=== PATIENT | female | born 1945 | race Two or more races ===

== ENCOUNTER → 2017-11-06 | Emergency (ER) | payer OTHER ==
[~2017-11-06] VITALS: Ht 149.9 cm; Wt 53.1 kg
[~2017-11-06] MED LIST: ADALAT CC30 MG; AMOX1TAB12 PO; ATENOLOL100 MG PO; BUTALB-ACETAMI1 EACH PO; BUTALBITAL-APAP1 TA1 PO; CATAPRES0.1 MG; DOLOGESIC 500-1 EACH PO; INTESTINEX680 MG PO; KETO10TA2 PO; PRAVACHOL10 MG; PROTONIX20 MG; PROTONIX40 MG PO; Procardia Xl 30MG TAB PO; SPIRONOLACT/HCT1 TAB; Synthroid PO; TUSSIONEX PENN115 ML PO; ZETIA10 MG
== END | disposition home or self-care (01) ==
LOC: ER 06:29
DX: R50.9 Fever, unspecified (principal)

== ENCOUNTER 2017-11-14 19:33 | Inpatient (IN) | payer OTHER ==
[~2017-11-14] VITALS: Ht 149.9 cm; Wt 53.1 kg
[2017-11-17] MEDS ORDERED: ZYRTEC10 M3 PO (12:18)
[2017-11-17] MEDS ORDERED: TUSICOF LIQUID120 ML PO (12:18)
[2017-11-17] MEDS ORDERED: AMOX1TAB12 PO (12:18)
== END 2017-11-17 12:33 | disposition home or self-care (01) | DRG 842 ==
LOC: ER 19:33 → MEDI 11-15 08:55
PROC: 30233N1 Transfusion of Nonautologous Red Blood Cells into Peripheral Vein, Percutaneous Approach (ICD-10-PCS; principal; 2017-11-15)
PROC: B54CZZZ Ultrasonography of Left Lower Extremity Veins (ICD-10-PCS; 2017-11-15)
DX: C90.00 Multiple myeloma not having achieved remission (principal); J11.1 Influenza due to unidentified influenza virus with other respiratory manifestations; D63.0 Anemia in neoplastic disease; I27.29 Other secondary pulmonary hypertension; I12.9 Hypertensive chronic kidney disease with stage 1 through stage 4 chronic kidney disease, or unspecified chronic kidney disease; E11.22 Type 2 diabetes mellitus with diabetic chronic kidney disease; N18.1 Chronic kidney disease, stage 1; K52.89 Other specified noninfective gastroenteritis and colitis; D69.59 Other secondary thrombocytopenia; E86.0 Dehydration; E87.6 Hypokalemia; E03.8 Other specified hypothyroidism

== ENCOUNTER 2018-07-24 02:41 | Inpatient (IN) | payer OTHER ==
[~2018-07-24] VITALS: Ht 149.9 cm; Wt 63.5 kg
[~2018-07-24 02:41] MED LIST changes: +TUSICOF LIQUID120 ML PO; +ZYRTEC10 M3 PO
[2018-07-29] MEDS ORDERED: RANITIDINE HCL150 M1 PO (18:35)
[2018-07-29] MEDS ORDERED: HYOSCYAMINE0.125 M1 SL (18:35)
[2018-07-29] MEDS ORDERED: ZOFRAN4 MG PO (18:35)
[2018-07-29] MEDS ORDERED: Intestinex CAP PO (18:35)
== END 2018-07-30 12:58 | disposition home or self-care (01) | DRG 394 ==
LOC: ER 02:41 → SURH 07-25 15:26
PROC: BW25Y0Z Computerized Tomography (CT Scan) of Chest, Abdomen and Pelvis using Other Contrast, Unenhanced and Enhanced (ICD-10-PCS; principal; 2018-07-25)
PROC: 8E0ZXY6 Isolation (ICD-10-PCS; 2018-07-25)
PROC: BW40ZZZ Ultrasonography of Abdomen (ICD-10-PCS; 2018-07-26)
DX: K62.89 Other specified diseases of anus and rectum (principal); A09 Infectious gastroenteritis and colitis, unspecified; C90.00 Multiple myeloma not having achieved remission; E86.0 Dehydration; E11.22 Type 2 diabetes mellitus with diabetic chronic kidney disease; I12.9 Hypertensive chronic kidney disease with stage 1 through stage 4 chronic kidney disease, or unspecified chronic kidney disease; N18.1 Chronic kidney disease, stage 1; E03.8 Other specified hypothyroidism; I27.29 Other secondary pulmonary hypertension

== ENCOUNTER 2018-10-12 00:09 | Emergency (ER) | payer OTHER ==
[~2018-10-12] VITALS: Ht 149.9 cm; Wt 59.9 kg
[~2018-10-12 00:09] MED LIST changes: +HYOSCYAMINE0.125 M1 SL; +Intestinex CAP PO; +RANITIDINE HCL150 M1 PO; +ZOFRAN4 MG PO
[2018-10-12] MEDS ORDERED: NIFEDIPINE ER30 M1 PO (03:42)
[2018-10-12] MEDS ORDERED: ATENOLOL25 MG PO (15:40)
== END 2018-10-12 03:59 | disposition home or self-care (01) ==
LOC: ER 00:09
DX: I16.0 Hypertensive urgency (principal); I10 Essential (primary) hypertension

== ENCOUNTER 2018-10-14 17:58 | Emergency (ER) | payer OTHER ==
[~2018-10-14] VITALS: Ht 149.9 cm; Wt 59.0 kg
[~2018-10-14 17:58] MED LIST changes: +ATENOLOL25 MG PO; +NIFEDIPINE ER30 M1 PO
== END 2018-10-14 18:44 | disposition home or self-care (01) ==
LOC: ER 17:58
DX: I16.0 Hypertensive urgency (principal); I10 Essential (primary) hypertension; R51 Headache

== ENCOUNTER 2019-01-27 13:18 | Outpatient (CLI) | payer OTHER | END 2019-01-27 13:32 | disposition home or self-care (01) | LOC: RAD 501 13:18 | DX: M25.561 Pain in right knee (principal); M25.522 Pain in left elbow; M25.571 Pain in right ankle and joints of right foot ==

== ENCOUNTER 2019-03-03 13:40 | Outpatient (CLI) | payer OTHER | END 2019-03-03 13:49 | disposition home or self-care (01) | LOC: NUCLEAR 13:40 | DX: M81.0 Age-related osteoporosis without current pathological fracture (principal) ==

== ENCOUNTER 2019-04-28 11:23 | Outpatient (CLI) | payer OTHER | END 2019-04-28 11:34 | disposition home or self-care (01) | LOC: MRI 11:23 | DX: M25.561 Pain in right knee (principal) | CPT/HCPCS: 73721 ==

== ENCOUNTER 2021-02-28 14:14 | Outpatient (CLI) | payer OTHER | END 2021-02-28 14:24 | disposition home or self-care (01) | LOC: MAMO-SONO 14:14 | DX: Z12.31 Encounter for screening mammogram for malignant neoplasm of breast (principal); I10 Essential (primary) hypertension; R07.89 Other chest pain; N64.4 Mastodynia; N64.59 Other signs and symptoms in breast ==

== ENCOUNTER 2021-04-06 10:48 | Outpatient (CLI) | payer OTHER | END 2021-04-06 11:06 | disposition home or self-care (01) | LOC: SONOGRAMA 10:48 | PROVIDERS: ATTEND Surgery | DX: D24.2 Benign neoplasm of left breast (principal); N60.11 Diffuse cystic mastopathy of right breast; N60.12 Diffuse cystic mastopathy of left breast; R92.0 Mammographic microcalcification found on diagnostic imaging of breast ==

== ENCOUNTER 2021-06-14 11:03 | Outpatient (CLI) | payer OTHER | END 2021-06-14 11:14 | disposition home or self-care (01) | LOC: SONOGRAMA 11:03 | PROVIDERS: ATTEND Internal Medicine | DX: E04.2 Nontoxic multinodular goiter (principal) ==

== ENCOUNTER 2021-08-03 09:44 | Outpatient (CLI) | payer OTHER | END 2021-08-03 09:52 | disposition home or self-care (01) | LOC: MRI 09:44 | PROVIDERS: ATTEND Psychiatry & Neurology Clinical Neurophysiology | DX: G31.84 Mild cognitive impairment of uncertain or unknown etiology (principal); G30.1 Alzheimer's disease with late onset; G31.89 Other specified degenerative diseases of nervous system | CPT/HCPCS: 70551 ==

== ENCOUNTER 2021-09-12 17:19 | Emergency (ER) | payer OTHER ==
[~2021-09-12] VITALS: Ht 149.9 cm; Wt 63.5 kg
[2021-09-12] MEDS ORDERED: PROBIOTIC & AC1 EACH PO (22:13)
[2021-09-12] MEDS ORDERED: PEPCID AC20 MG PO (22:13)
== END 2021-09-12 22:20 | disposition home or self-care (01) ==
LOC: ER 17:19
DX: R19.7 Diarrhea, unspecified (principal); Z20.822 Contact with and (suspected) exposure to COVID-19

== ENCOUNTER 2022-06-20 07:40 | Outpatient (CLI) | payer OTHER ==
[~2022-06-20 07:40] MED LIST changes: +PEPCID AC20 MG PO; +PROBIOTIC & AC1 EACH PO
== END 2022-06-20 07:49 | disposition home or self-care (01) ==
LOC: SONOGRAMA 07:40
PROVIDERS: ATTEND Internal Medicine Nephrology
DX: E11.22 Type 2 diabetes mellitus with diabetic chronic kidney disease (principal); N18.30 Chronic kidney disease, stage 3 unspecified; N28.1 Cyst of kidney, acquired

== ENCOUNTER 2023-04-15 07:36 | Outpatient (CLI) | payer OTHER | END 2023-04-15 07:42 | disposition home or self-care (01) | LOC: NUCLEAR 07:36 | PROVIDERS: ATTEND Internal Medicine Cardiovascular Disease | DX: I25.10 Atherosclerotic heart disease of native coronary artery without angina pectoris (principal) | CPT/HCPCS: 78452; 93017; A9500; J0153 ==

== ENCOUNTER 2023-08-26 07:58 | Outpatient (CLI) | payer OTHER | END 2023-08-26 08:13 | disposition home or self-care (01) | LOC: RAD 07:58 | PROVIDERS: ATTEND Physical Medicine & Rehabilitation | DX: M54.50 Low back pain, unspecified (principal); M54.16 Radiculopathy, lumbar region; N18.30 Chronic kidney disease, stage 3 unspecified; M16.0 Bilateral primary osteoarthritis of hip | CPT/HCPCS: 72148 ==

== ENCOUNTER 2024-07-14 08:57 | Outpatient (CLI) | payer OTHER | END 2024-07-14 09:00 | disposition home or self-care (01) | LOC: NUCLEAR 08:57 | PROVIDERS: ATTEND Internal Medicine Cardiovascular Disease | DX: I87.2 Venous insufficiency (chronic) (peripheral) (principal) ==

== ENCOUNTER 2024-07-15 08:37 | Outpatient (CLI) | payer OTHER | END 2024-07-15 08:40 | disposition home or self-care (01) | LOC: NUCLEAR 08:37 | PROVIDERS: ATTEND Internal Medicine Cardiovascular Disease | DX: I73.9 Peripheral vascular disease, unspecified (principal); E11.9 Type 2 diabetes mellitus without complications ==

== ENCOUNTER → 2024-12-22 07:12 | Outpatient (CLI) | payer OTHER | END | disposition home or self-care (01) | LOC: NUCLEAR 06:30 | PROVIDERS: ATTEND Internal Medicine | DX: M94.9 Disorder of cartilage, unspecified (principal); M19.90 Unspecified osteoarthritis, unspecified site | CPT/HCPCS: 78306; A9503 ==

== ENCOUNTER 2025-07-20 14:18 | Inpatient (IN) | payer OTHER ==
[~2025-07-20] VITALS: Ht 149.9 cm; Wt 59.0 kg
--- NOTE | 2025-07-20 14:52 | NUR ---
PTE ALERTA Y ORIENTADA XE
--- NOTE | 2025-07-20 14:53 | NUR ---
PTE ALERTA Y ORIENTADA X3, SE VIMAL S/V PTE REFIERE QUE PRESENTA VOMITOS DESDE OMI. PTE REFIERE TENER LEVE DOLOR ABDOMINAL. SE UBICA PTE EN PASILLO
[2025-07-20] MEDS ORDERED: LACTOBACILLUS ACIDOPHILUS 1 CAP CAP PO ONE ×2 (16:00→16:18)
[2025-07-20] MEDS ORDERED: FAMOTIDINE/PF 20 MG/2 ML VIAL IV ONE (16:00)
[2025-07-20] MEDS ORDERED: 0.9 % SODIUM CHLORIDE 500 ML IV ONE (16:00)
[2025-07-20] MEDS ORDERED: ONDANSETRON HCL 2 MG/ML VIAL IV ONE (16:00)
[2025-07-20] MEDS ORDERED: ONDANSETRON HCL 2 MG/ML VIAL ONE ×2 (16:18→23:13)
[2025-07-20] MEDS ORDERED: FAMOTIDINE/PF 20 MG/2 ML VIAL ONE (16:18)
--- NOTE | 2025-07-20 16:59 | NUR ---
SE EDUCA A PACIENTE SOBRE ORDENES MEDICAS. SE COLECTAN MUESTRAS DE LAB Y SE ADMINISTRA MEDICAMENTOS VALERI ORDEN MEDICA
[2025-07-20 17:10] LABS: BASO % 0.7 % (0.1-1.2); EOS # 0.16 (0.04-0.54); EOS % 1.7 % (0.7-7.0); LYMPH # 3.54 (1.18-3.74); LYMPH % 37.6 % (19.3-53.1); MEAN PLATELET VOLUME 10.60 fl (9.4-12.4); MONO # 0.79 (0.24-0.82); MONO % 8.4 % (4.7-12.5); NEUT # 4.82 (1.56-6.13); NEUT % 51.3 % (34.0-71.1); RED CELL DISTRIBUTION WIDTH 13.7 % (11.6-14.4)
[2025-07-20 17:30] LABS: COVID-19 AG NEGATIVE (NEGATIVE)
[2025-07-20 17:38] LABS: ALT/SGPT 13.0 U/L (12-78); AST/SGOT 18.0 U/L (15-37); BILIRUBIN TOTAL 0.35 mg/dL (0.3-1.2); BUN CREA RATIO 13.0 (7.0-25.0); CREATININE SERUM 2.46 mg/dL (0.55-1.02); GFR 19.03; GLOBULINA 2.9 G/DL (2.4-3.5); GLUCOSE FASTING 121.0 mg/dL (65-100); OSMOLALITY SERUM 299.0 MOSM/KG (275-295)
--- NOTE | 2025-07-20 17:45 | NUR ---
SE MAX PRESION ARTERIAL DE MANERA MANUAL Y SE REALIZA EKG
[2025-07-20] MEDS ORDERED: hydrALAZINE HCL 20 MG VIAL ONE (17:55)
[2025-07-20] MEDS ORDERED: hydrALAZINE HCL 20 MG VIAL IV ONE (18:00)
[2025-07-20] MEDS ORDERED: NITROGLYCERIN IN 5 % DEXTROSE 50 MG/250 ML BOTTLE IV ONE (19:00)
[2025-07-20] MEDS ORDERED: NITROGLYCERIN IN 5 % DEXTROSE 250 ML IV SCH (19:00)
[2025-07-20] MEDS ORDERED: ROSUVASTATIN CALCIUM 10 MG TABLET PO SCH (20:28)
[2025-07-20] MEDS ORDERED: CLOPIDOGREL BISULFATE 75 MG TABLET PO SCH (20:29)
[2025-07-20] MEDS ORDERED: 0.9 % SODIUM CHLORIDE 1,000 ML IV SCH ×2 (20:30→20:45)
[2025-07-20] MEDS ORDERED: ACETAMINOPHEN 500 MG GEL..CAP PO PRN (20:30)
[2025-07-20] MEDS ORDERED: ASPIRIN 325 MG TABLET PO ONE (20:30)
[2025-07-20] MEDS ORDERED: ONDANSETRON HCL 4 MG in 0.9 % SODIUM CHLORIDE 50 ML IV PRN (20:30)
[2025-07-20] MEDS ORDERED: ENOXAPARIN SODIUM 60 MG/0.6 ML SYRINGE SUBCUTANEO SCH (20:30)
[2025-07-20] MEDS ORDERED: ENOXAPARIN SODIUM 60 MG/0.6 ML SYRINGE SUBCUTANEO ONE (21:22)
[2025-07-20] MEDS ORDERED: CLOPIDOGREL BISULFATE 75 MG TABLET PO ONE (21:22)
[2025-07-20 21:46] VITALS: BP 178/90; O2SAT 95
[2025-07-20 21:56] VITALS: BP 178/90
[2025-07-20 23:54] VITALS: BP 193/72; O2SAT 100
[2025-07-21] VITALS (21 sets, daily range): BP systolic 124–188; BP diastolic 59–89; O2SAT 96–100
[2025-07-21] MEDS ORDERED: LEVOTHYROXINE SODIUM 50 MCG TABLET PO SCH (06:00)
[2025-07-21 07:28] LABS: CHOL HDL RATIO 2.2 (0-5.0); HDL 54.0 mg/dl (40-60); LDL 44.0 mg/dl (0-130); TSH 0.915 uIU/mL (0.358-3.74); VLDL 19.0 (0-39)
[2025-07-21] MEDS ORDERED: ACETAMINOPHEN 500 MG GEL..CAP PO ONE (07:34)
[2025-07-21] MEDS ORDERED: ONDANSETRON HCL 2 MG/ML VIAL ONE (07:34)
[2025-07-21] MEDS ORDERED: hydrALAZINE HCL 20 MG VIAL IV PRN ×2 (08:15→08:45)
[2025-07-21] MEDS ORDERED: hydrALAZINE HCL 20 MG VIAL IV ONE (08:15)
[2025-07-21] MEDS ORDERED: ROSUVASTATIN CALCIUM 20 MG TABLET PO SCH (09:00)
[2025-07-21] MEDS ORDERED: ATENOLOL 25 MG TABLET PO SCH (09:00)
[2025-07-21] MEDS ORDERED: FAMOTIDINE/PF 20 MG in 0.9 % SODIUM CHLORIDE 8 ML IV PUSH SCH (09:00)
[2025-07-21] MEDS ORDERED: ASPIRIN 81 MG TAB.CHEW PO SCH (09:00)
[2025-07-21] MEDS ORDERED: GABAPENTIN 300 MG CAPSULE PO SCH (09:00)
[2025-07-21] MEDS ORDERED: SODIUM CHLORIDE 0.45 % 1,000 ML IV SCH (15:00)
[2025-07-21] MEDS ORDERED: NITROGLYCERIN IN 5 % DEXTROSE 250 ML IV SCH (15:15)
[2025-07-21] MEDS ORDERED: DONEPEZIL HCL 10 MG TABLET PO SCH (17:00)
[2025-07-21] MEDS ORDERED: hydrALAZINE HCL 20 MG VIAL ONE (20:05)
[2025-07-21] MEDS ORDERED: NIFEDIPINE 30 MG TAB.SA.OSM PO SCH (20:31)
[2025-07-22] VITALS (8 sets, daily range): BP systolic 155–183; BP diastolic 68–80; O2SAT 90–100
[2025-07-22 06:45] LABS: BASO % 0.4 % (0.1-1.2); EOS # 0.03 (0.04-0.54); EOS % 0.3 % (0.7-7.0); LYMPH # 2.80 (1.18-3.74); LYMPH % 27.3 % (19.3-53.1); MEAN PLATELET VOLUME 10.70 fl (9.4-12.4); MONO # 0.68 (0.24-0.82); MONO % 6.6 % (4.7-12.5); NEUT # 6.63 (1.56-6.13); NEUT % 64.8 % (34.0-71.1); RED CELL DISTRIBUTION WIDTH 13.4 % (11.6-14.4)
[2025-07-22 07:11] LABS: INR 1.05
[2025-07-22 07:30] LABS: ALT/SGPT 13.0 U/L (12-78); AST/SGOT 24.0 U/L (15-37); BILIRUBIN TOTAL 0.45 mg/dL (0.3-1.2); BUN CREA RATIO 11.0 (7.0-25.0); CREATININE SERUM 2.21 mg/dL (0.55-1.02); GFR 21.53; GLOBULINA 2.5 G/DL (2.4-3.5); GLUCOSE FASTING 111.0 mg/dL (65-100); OSMOLALITY SERUM 292.0 MOSM/KG (275-295)
[2025-07-22 10:36] LABS: URINE APPEARANCE Clear; URINE BILIRRUBIN Negative (NEGATIVE); URINE BLOOD Negative; URINE COLOR Yellow; URINE KETONE 15 (NEGATIVE); URINE LEUKOCYTE Negative; URINE NITRATE Negative; URINE UROBILINOGEN 0.2 E.U./dl
[2025-07-22 10:42] LABS: URINE BACTERIA 57.5 uL (0.0-1933); URINE EPITHELIAL CELLS 6.2 uL (0.0-38.8); URINE RBC 2.1 uL (0.0-20.8); URINE WBC 3.5 uL (0.0-23.2)
[2025-07-22 10:45] LABS: URINE CAST 0.43 uL (0.0-1.40); URINE GLUCOSE 500 MG/DL (NEGATIVE); URINE PROTEIN 100 (NEGATIVE)
[2025-07-22] MEDS ORDERED: POTASSIUM BICARBONATE/CIT AC 25 MEQ TABLET.EFF PO SCH (13:00)
[2025-07-22] MEDS ORDERED: PANTOPRAZOLE SODIUM 80 MG in 0.9 % SODIUM CHLORIDE 100 ML IV SCH (21:45)
[2025-07-22] MEDS ORDERED: INSULIN LISPRO 1,000 UNIT/10 ML UNITS SUBCUTANEO PRN (22:30)
[2025-07-22] MEDS ORDERED: DEXTROSE 50 % IN WATER 0.5 G/ML VIAL IV PRN (22:30)
[2025-07-23] VITALS (8 sets, daily range): BP systolic 160–178; BP diastolic 74–78; O2SAT 94–98
[2025-07-23 07:28] LABS: BASO % 0.5 % (0.1-1.2); EOS # 0.01 (0.04-0.54); EOS % 0.1 % (0.7-7.0); LYMPH # 2.51 (1.18-3.74); LYMPH % 24.5 % (19.3-53.1); MEAN PLATELET VOLUME 11.60 fl (9.4-12.4); MONO # 0.81 (0.24-0.82); MONO % 7.9 % (4.7-12.5); NEUT # 6.78 (1.56-6.13); NEUT % 66.0 % (34.0-71.1); RED CELL DISTRIBUTION WIDTH 13.8 % (11.6-14.4)
[2025-07-23 07:53] LABS: BUN CREA RATIO 12.0 (7.0-25.0); CREATININE SERUM 2.08 mg/dL (0.55-1.02); GFR 23.09; GLUCOSE FASTING 70.0 mg/dL (65-100); OSMOLALITY SERUM 293.0 MOSM/KG (275-295)
[2025-07-23] MEDS ORDERED: ENOXAPARIN SODIUM 40 MG/0.4 ML SYRINGE SUBCUTANEO SCH (09:00)
[2025-07-23] MEDS ORDERED: POTASSIUM CHLORIDE IN WATER 40 MEQ/100 ML PIGGYBAG IV ONE (22:15)
[2025-07-24] VITALS (10 sets, daily range): BP systolic 159–182; BP diastolic 67–82; O2SAT 90–100
[2025-07-24 08:47] LABS: BUN CREA RATIO 14.0 (7.0-25.0); CREATININE SERUM 2.14 mg/dL (0.55-1.02); GFR 22.34; GLUCOSE FASTING 68.0 mg/dL (65-100); OSMOLALITY SERUM 287.0 MOSM/KG (275-295)
[2025-07-24] MEDS ORDERED: POTASSIUM CHLORIDE IN WATER 100 ML IV ONE (21:00)
[2025-07-25 00:57] VITALS: O2SAT 98
[2025-07-25 01:57] VITALS: BP 180/76; O2SAT 96
[2025-07-25 05:51] VITALS: O2SAT 90
[2025-07-25 07:05] LABS: BUN CREA RATIO 14.0 (7.0-25.0); CREATININE SERUM 1.89 mg/dL (0.55-1.02); GFR 25.79; GLUCOSE FASTING 101.0 mg/dL (65-100); OSMOLALITY SERUM 295.0 MOSM/KG (275-295)
[2025-07-25 08:00] VITALS: BP 172/82
[2025-07-25 08:05] LABS: BASO % 0.4 % (0.1-1.2); EOS # 0.11 (0.04-0.54); EOS % 1.2 % (0.7-7.0); LYMPH # 1.90 (1.18-3.74); LYMPH % 20.4 % (19.3-53.1); MEAN PLATELET VOLUME 11.10 fl (9.4-12.4); MONO # 0.72 (0.24-0.82); MONO % 7.7 % (4.7-12.5); NEUT # 6.40 (1.56-6.13); NEUT % 68.9 % (34.0-71.1); RED CELL DISTRIBUTION WIDTH 13.7 % (11.6-14.4)
[2025-07-25] MEDS ORDERED: ENOXAPARIN SODIUM 30 MG/0.3 ML SYRINGE SUBCUTANEO SCH (09:00)
[2025-07-25] MEDS ORDERED: NIFEDIPINE 60 MG TAB.SA.OSM PO SCH (09:00)
[2025-07-25 09:30] VITALS: O2SAT 90
[2025-07-25 13:28] VITALS: O2SAT 97
== END 2025-07-25 16:57 | disposition home or self-care (01) | DRG 682 ==
LOC: ER 14:18 → ICU-2 20:51 → MEDJ 07-21 20:48
PROVIDERS: General Practice; Internal Medicine Nephrology; ADMIT Internal Medicine; ATTEND Internal Medicine
PROC: BW28ZZZ Computerized Tomography (CT Scan) of Head (ICD-10-PCS; principal; 2025-07-20)
PROC: BT43ZZZ Ultrasonography of Bilateral Kidneys (ICD-10-PCS; 2025-07-20)
PROC: B246ZZZ Ultrasonography of Right and Left Heart (ICD-10-PCS; 2025-07-20)
PROC: 4A12X4Z Monitoring of Cardiac Electrical Activity, External Approach (ICD-10-PCS; 2025-07-21)
PROC: BW21ZZZ Computerized Tomography (CT Scan) of Abdomen and Pelvis (ICD-10-PCS; 2025-07-21)
DX: N17.9 Acute kidney failure, unspecified (principal); I21.4 Non-ST elevation (NSTEMI) myocardial infarction; I16.9 Hypertensive crisis, unspecified; R11.2 Nausea with vomiting, unspecified; R19.7 Diarrhea, unspecified; R42 Dizziness and giddiness; E86.0 Dehydration; E03.9 Hypothyroidism, unspecified